=== PATIENT | female | born 1960 | race Caucasian/White ===

== ENCOUNTER 2017-05-27 07:27 | Inpatient (IN) ==
[2017-05-27] MEDS ORDERED: LABETALOL 20 MG/4 ML SYRINGE IV STA (07:42)
[2017-05-27] MEDS ORDERED: ASPIRIN 300 MG SUPP RECTAL STA (07:42)
[2017-05-27] MEDS ORDERED: ONDANSETRON 4 MG/2 ML VIAL IV PRN ×2 (07:42→10:05)
[2017-05-27] MEDS ORDERED: LABETALOL 20 MG/4 ML SYRINGE IV ONE (07:48)
[2017-05-27] MEDS ORDERED: ASPIRIN 300 MG SUPP RECTAL ONE (07:49)
[2017-05-27 08:12] LABS: Basophils # 0.1 10*3/uL (0.0-0.2); Basophils % 0.7 % (0.0-0.8); Eosinophils # 0.3 10*3/uL (0.0-0.87); Eosinophils % 3.1 % (0.00-10.9); Hematocrit 40.8 VOL% (35.7-47.0); Hemoglobin 13.7 GM/DL (12.0-16.0); Immature Granulocytes % 0.3 %; Immature Granulocytes Absolute 0.03 #; Lymphocytes # 3.2 10*3/uL (1.4-4.0); Lymphocytes % 31.6 % (21.3-54.2); Mean Corpuscular HGB Conc 33.6 GM/DL (32-36); Mean Corpuscular Hemoglobin 29 PG (27-34); Mean Corpuscular Volume 84.8 FL (87-102); Mean Platelet Volume 9.1 FL (9.6-12.0); Monocytes % 9.6 % (1.7-12.7); Neutrophils # 5.6 10*3/uL (1.4-7.4); Neutrophils % 54.7 % (38.7-73.9); Platelet Count 409 T/CUMM (130-400); Red Blood Count 4.81 MC/CUMM (3.8-5.5); Red Cell Distribution Width 13.3 % (9.3-17.3); White Blood Count 10.2 T/CUMM (4-12)
[2017-05-27 08:20] LABS: INR 0.9; PT Patient Result 9.6 SECS; Partial Thromboplastin Time 25.6 SECS (0-40)
[2017-05-27 08:52] LABS: Alanine Aminotransferase 18 U/L (13-56); Albumin 2.7 G/DL (3.4-5.0); Alkaline Phosphatase 86 U/L (45-117); Aspartate Amino Transferase 26 U/L (0-37); Bilirubin,Total < 0.39 MG/DL (0.2-1.0); Blood Urea Nitrogen 25 MG/DL (7-18); Calcium 9.1 MG/DL (8.5-10.1); Glucose 139 MG/DL (74-106); Osmolality,Calculated 280.7 MOS/KG (273-304); Potassium 3.4 MMOL/L (3.5-5.1); Sodium 138 MMOL/L (136-145); Total Protein 6.3 G/DL (6.4-8.3)
[2017-05-27] MEDS ORDERED: ENOXAPARIN 80 MG/0.8 ML SYRINGE SUBCUT STA (08:58)
[2017-05-27] MEDS ORDERED: ENOXAPARIN 80 MG/0.8 ML SYRINGE SUBCUT ONE (09:03)
[2017-05-27 09:36] LABS: Apearance,Urine CLEAR (Clear); Bacteria,Urine Occasional /HPF (Few); Bilirubin,Urine Negative (Negative); Blood, Urine Small mg/dL (Negative); Glucose,Urine (UA) 150 mg/dL (Negative); Ketones,Urine Negative (Negative); Mucus,Urine Occasional /LPF (Occasional); Nitrite,Urine Negative (Negative); Protein,Urine >=500 MG/DL; RBC,Urine 2 /HPF (0-4); Squamous Epithelial Cell,Urine Occasional /HPF (0-10); Urine Color Straw (Yellow); Urine Specific Gravity 1.005 (1.001-1.035); Urine Urobilinogen < 2.0 EU/DL (0.2-1.0); WBC,Urine 1 /HPF (0-6)
[2017-05-27 10:03] LABS: Barbiturates Screen,Urine Negative (Negative); Benzodiazepines Screen,Urine Negative (Negative); Cannabinoid Screen,Urine Negative (Negative); Opiate Screen,Urine Negative (Negative); Phencyclidine Screen,Urine Negative (Negative)
[2017-05-27] MEDS ORDERED: guaiFENesin/DM ER 600-30 MG TABLET PO PRN (10:05)
[2017-05-27] MEDS ORDERED: diphenhydrAMINE CAP 25 MG CAPSULE PO PRN (10:05)
[2017-05-27] MEDS ORDERED: MORPHINE 4 MG/1 ML VIAL IV PRN (10:05)
[2017-05-27] MEDS ORDERED: DOCUSATE SODIUM 100 MG CAPSULE PO PRN (10:05)
[2017-05-27] MEDS ORDERED: GLUCAGON 1 MG VIAL IM PRN (10:05)
[2017-05-27] MEDS ORDERED: ACETAMINOPHEN 325 MG TABLET PO PRN (10:05)
[2017-05-27] MEDS ORDERED: DEXTROSE 50% 25 GM/50 ML VIAL IV PRN (10:05)
[2017-05-27] MEDS ORDERED: LABETALOL 20 MG/4 ML SYRINGE IV PRN (10:13)
[2017-05-27] MEDS ORDERED: VALSARTAN 160 MG TABLET PO SCH (11:25)
[2017-05-27] MEDS ORDERED: NEBIVOLOL 10 MG TABLET PO SCH ×2 (11:25→15:49)
[2017-05-27] MEDS ORDERED: NITROGLYCERIN SL 0.4 MG TABLET SL PRN (11:25)
[2017-05-27 11:38] LABS: CKMB % 2.2 %
[2017-05-27 11:39] LABS: Troponin I Only 0.897 NG/ML (0.00-0.045)
[2017-05-27] MEDS ORDERED: INSULIN GLARGINE 100 UNIT/ML SUBCUT SCH ×2 (12:00→21:00)
[2017-05-27] MEDS: ASPIRIN EC 81 MG TABLET PO SCH (12:49)
[2017-05-27] MEDS: VALSARTAN 160 MG TABLET PO SCH ×2 (12:58→20:12)
[2017-05-27] MEDS: PANTOPRAZOLE 40 MG TABLET PO SCH (12:59)
[2017-05-27] MEDS: ESTRADIOL 1 MG TABLET PO SCH (12:59)
[2017-05-27] MEDS: PRAVASTATIN 40 MG TABLET PO SCH (12:59)
[2017-05-27] MEDS: FUROSEMIDE 40 MG/4 ML VIAL IV SCH ×2 (14:50→20:12)
[2017-05-27] MEDS: hydrALAZINE 20 MG/1 ML VIAL IV PRN (16:06)
[2017-05-27] MEDS: INSULIN LISPRO 100 UNIT/ML SUBCUT SCH (16:42)
[2017-05-27] MEDS: GLIMEPIRIDE 4 MG TABLET PO SCH (17:08)
[2017-05-27] MEDS: NITROGLYCERIN 2% OINT 1 INCH/GM PACK TOP SCH (17:08)
[2017-05-27] MEDS: POTASSIUM CHLORIDE 20 MEQ TABLET PO PRN ×3 (17:09→20:12)
[2017-05-27] MEDS: APIXABAN 2.5 MG TABLET PO SCH (20:12)
[2017-05-27] MEDS: hydrALAZINE 25 MG TABLET PO SCH (20:12)
[2017-05-27 20:18] LABS: Troponin I Only 0.582 NG/ML (0.00-0.045)
[2017-05-28] MEDS: hydrALAZINE 20 MG/1 ML VIAL IV PRN (00:09)
[2017-05-28 00:20] LABS: Troponin I Only 0.534 NG/ML (0.00-0.045)
[2017-05-28] MEDS: NITROGLYCERIN 2% OINT 1 INCH/GM PACK TOP SCH ×3 (01:47→11:05)
[2017-05-28 06:20] LABS: Calcium 8.4 MG/DL (8.5-10.1); Potassium 3.5 MMOL/L (3.5-5.1)
[2017-05-28 06:52] LABS: Calcium 8.5 MG/DL (8.5-10.1); Osmolality,Calculated 280.3 MOS/KG (273-304); Potassium 3.4 MMOL/L (3.5-5.1); Risk Ratio 4.5; Thyroid Stimulating Hormone 2.49 uIU/ml (0.358-3.74); VLDL CHOLESTEROL 47.6 MG/DL
[2017-05-28 08:09] LABS: Basophils # 0.1 10*3/uL (0.0-0.2); Basophils % 0.6 % (0.0-0.8); Eosinophils # 0.1 10*3/uL (0.0-0.87); Eosinophils % 0.6 % (0.00-10.9); Hematocrit 38.5 VOL% (35.7-47.0); Hemoglobin 13.1 GM/DL (12.0-16.0); Immature Granulocytes % 0.3 %; Immature Granulocytes Absolute 0.03 #; Lymphocytes # 1.6 10*3/uL (1.4-4.0); Lymphocytes % 16.8 % (21.3-54.2); Mean Corpuscular Hemoglobin 29 PG (27-34); Mean Corpuscular Volume 84.8 FL (87-102); Mean Platelet Volume 9.1 FL (9.6-12.0); Monocytes % 10.6 % (1.7-12.7); Neutrophils # 6.7 10*3/uL (1.4-7.4); Neutrophils % 71.1 % (38.7-73.9); Platelet Count 364 T/CUMM (130-400); Red Blood Count 4.54 MC/CUMM (3.8-5.5); Red Cell Distribution Width 13.6 % (9.3-17.3); White Blood Count 9.4 T/CUMM (4-12)
[2017-05-28] MEDS: GLIMEPIRIDE 4 MG TABLET PO SCH ×2 (09:39→17:27)
[2017-05-28] MEDS: INSULIN LISPRO 100 UNIT/ML SUBCUT SCH ×2 (09:39→17:27)
[2017-05-28] MEDS: PRAVASTATIN 40 MG TABLET PO SCH (10:12)
[2017-05-28] MEDS: NEBIVOLOL 10 MG TABLET PO SCH (10:12)
[2017-05-28] MEDS: ESTRADIOL 1 MG TABLET PO SCH (10:12)
[2017-05-28] MEDS: VALSARTAN 160 MG TABLET PO SCH ×2 (10:12→21:57)
[2017-05-28] MEDS: APIXABAN 2.5 MG TABLET PO SCH ×2 (10:12→21:59)
[2017-05-28] MEDS: hydrALAZINE 25 MG TABLET PO SCH (10:13)
[2017-05-28] MEDS: PANTOPRAZOLE 40 MG TABLET PO SCH (10:13)
[2017-05-28] MEDS: ASPIRIN EC 81 MG TABLET PO SCH (10:13)
[2017-05-28] MEDS: FUROSEMIDE 40 MG/4 ML VIAL IV SCH ×3 (10:13→21:52)
[2017-05-28] MEDS ORDERED: POTASSIUM CHLORIDE 20 MEQ PACK PO ONE (10:30)
[2017-05-28] MEDS ORDERED: NITROGLYCERIN SL 0.4 MG TABLET SL PRN (11:06)
[2017-05-28] MEDS ORDERED: PRAVASTATIN 40 MG TABLET PO SCH (17:00)
[2017-05-28] MEDS ORDERED: ENOXAPARIN 40 MG/0.4 ML SYRINGE SUBCUT SCH (21:00)
[2017-05-28] MEDS: INSULIN GLARGINE 100 UNIT/ML SUBCUT SCH (21:59)
[2017-05-28] MEDS: ROSUVASTATIN 20 MG TABLET PO SCH (21:59)
[2017-05-28] MEDS: ZALEPLON 5 MG CAPSULE PO PRN (22:20)
[2017-05-28] MEDS ORDERED: SODIUM CHLORIDE 0.9% 1,000 ML IV SCH ×2 (23:45)
[2017-05-29 00:25] LABS: Basophils # 0.1 10*3/uL (0.0-0.2); Basophils % 0.5 % (0.0-0.8); Eosinophils # 0.3 10*3/uL (0.0-0.87); Hematocrit 39.1 VOL% (35.7-47.0); Hemoglobin 12.8 GM/DL (12.0-16.0); Immature Granulocytes % 0.4 %; Immature Granulocytes Absolute 0.05 #; Lymphocytes % 16.1 % (21.3-54.2); Mean Corpuscular HGB Conc 32.7 GM/DL (32-36); Mean Corpuscular Hemoglobin 28 PG (27-34); Mean Corpuscular Volume 85.4 FL (87-102); Mean Platelet Volume 9.1 FL (9.6-12.0); Monocytes # 1.1 10*3/uL (0.11-0.8); Monocytes % 8.5 % (1.7-12.7); Neutrophils # 9.2 10*3/uL (1.4-7.4); Neutrophils % 72.5 % (38.7-73.9); Platelet Count 382 T/CUMM (130-400); Red Blood Count 4.58 MC/CUMM (3.8-5.5); White Blood Count 12.6 T/CUMM (4-12)
[2017-05-29 00:38] LABS: PT Patient Result 10.2 SECS
[2017-05-29 00:51] LABS: Albumin 2.3 G/DL (3.4-5.0); Bilirubin,Total 0.4 MG/DL (0.2-1.0); Calcium 8.2 MG/DL (8.5-10.1); Osmolality,Calculated 281.7 MOS/KG (273-304); Potassium 3.5 MMOL/L (3.5-5.1); Total Protein 5.8 G/DL (6.4-8.3)
[2017-05-29 06:00] LABS: Basophils # 0.1 10*3/uL (0.0-0.2); Basophils % 0.5 % (0.0-0.8); Eosinophils # 0.2 10*3/uL (0.0-0.87); Eosinophils % 1.8 % (0.00-10.9); Hematocrit 37.2 VOL% (35.7-47.0); Hemoglobin 11.9 GM/DL (12.0-16.0); Immature Granulocytes % 0.2 %; Immature Granulocytes Absolute 0.02 #; Mean Corpuscular Hemoglobin 28 PG (27-34); Mean Corpuscular Volume 87.9 FL (87-102); Mean Platelet Volume 9.2 FL (9.6-12.0); Monocytes # 1.1 10*3/uL (0.11-0.8); Monocytes % 10.2 % (1.7-12.7); Neutrophils % 68.3 % (38.7-73.9); Platelet Count 366 T/CUMM (130-400); Red Blood Count 4.23 MC/CUMM (3.8-5.5); Red Cell Distribution Width 14.1 % (9.3-17.3); White Blood Count 10.3 T/CUMM (4-12)
[2017-05-29] MEDS: VALSARTAN 160 MG TABLET PO SCH ×2 (09:54→21:29)
[2017-05-29] MEDS: PANTOPRAZOLE 40 MG TABLET PO SCH (09:54)
[2017-05-29] MEDS: APIXABAN 2.5 MG TABLET PO SCH (09:54)
[2017-05-29] MEDS: NEBIVOLOL 10 MG TABLET PO SCH (09:54)
[2017-05-29] MEDS: INSULIN LISPRO 100 UNIT/ML SUBCUT SCH ×2 (09:56→17:24)
[2017-05-29] MEDS: ASPIRIN EC 81 MG TABLET PO SCH (09:56)
[2017-05-29] MEDS: FUROSEMIDE 40 MG/4 ML VIAL IV SCH ×3 (09:56→21:30)
[2017-05-29] MEDS: GLIMEPIRIDE 4 MG TABLET PO SCH ×2 (09:56→17:24)
[2017-05-29] MEDS: HEPARIN DRIP 25,000 UNITS/500 ML PREMIX IV SCH (12:00)
[2017-05-29] MEDS: ROSUVASTATIN 20 MG TABLET PO SCH (21:29)
[2017-05-29] MEDS: INSULIN GLARGINE 100 UNIT/ML SUBCUT SCH (21:30)
[2017-05-30] MEDS ORDERED: clonazePAM 0.5 MG TABLET PO ONE (00:03)
[2017-05-30 00:41] LABS: Basophils # 0.1 10*3/uL (0.0-0.2); Basophils % 0.5 % (0.0-0.8); Eosinophils # 0.2 10*3/uL (0.0-0.87); Eosinophils % 2.5 % (0.00-10.9); Hematocrit 36.2 VOL% (35.7-47.0); Hemoglobin 11.8 GM/DL (12.0-16.0); Immature Granulocytes % 0.3 %; Immature Granulocytes Absolute 0.03 #; Lymphocytes # 2.2 10*3/uL (1.4-4.0); Lymphocytes % 22.6 % (21.3-54.2); Mean Corpuscular HGB Conc 32.6 GM/DL (32-36); Mean Corpuscular Hemoglobin 28 PG (27-34); Mean Corpuscular Volume 86.8 FL (87-102); Mean Platelet Volume 9.8 FL (9.6-12.0); Monocytes % 10.5 % (1.7-12.7); Neutrophils # 6.2 10*3/uL (1.4-7.4); Neutrophils % 63.6 % (38.7-73.9); Platelet Count 365 T/CUMM (130-400); Red Blood Count 4.17 MC/CUMM (3.8-5.5); Red Cell Distribution Width 14.2 % (9.3-17.3); White Blood Count 9.7 T/CUMM (4-12)
[2017-05-30 01:06] LABS: Calcium 7.9 MG/DL (8.5-10.1); Osmolality,Calculated 280.8 MOS/KG (273-304); Potassium 3.5 MMOL/L (3.5-5.1)
[2017-05-30] MEDS: HEPARIN 5,000 UNIT/1 ML VIAL IV PRN ×3 (01:45→16:02)
[2017-05-30] MEDS: HEPARIN DRIP 25,000 UNITS/500 ML PREMIX IV SCH (07:52)
[2017-05-30] MEDS ORDERED: fentaNYL 100 MCG/2 ML VIAL ONE (09:40)
[2017-05-30] MEDS: INSULIN LISPRO 100 UNIT/ML SUBCUT SCH ×2 (09:49→16:05)
[2017-05-30] MEDS: GLIMEPIRIDE 4 MG TABLET PO SCH ×2 (09:50→16:05)
[2017-05-30] MEDS ORDERED: PROPOFOL 200 MG/20 ML VIAL IV ONE (10:35)
[2017-05-30] MEDS ORDERED: ETOMIDATE 40 MG/20 ML VIAL IV ONE (10:35)
[2017-05-30] MEDS: NEBIVOLOL 10 MG TABLET PO SCH (11:04)
[2017-05-30] MEDS: VALSARTAN 160 MG TABLET PO SCH ×2 (11:04→22:04)
[2017-05-30] MEDS: FUROSEMIDE 40 MG/4 ML VIAL IV SCH (11:05)
[2017-05-30] MEDS: ASPIRIN EC 81 MG TABLET PO SCH (11:05)
[2017-05-30] MEDS: PANTOPRAZOLE 40 MG TABLET PO SCH (11:05)
[2017-05-30] MEDS: WARFARIN 5 MG TABLET PO SCH (17:24)
[2017-05-30] MEDS: INSULIN GLARGINE 100 UNIT/ML SUBCUT SCH (22:04)
[2017-05-30] MEDS: ZALEPLON 5 MG CAPSULE PO PRN (22:04)
[2017-05-30] MEDS: ROSUVASTATIN 20 MG TABLET PO SCH (22:04)
[2017-05-30 23:44] LABS: Apearance,Urine Slightly Hazy (Clear); Bacteria,Urine Many /HPF (Few); Bilirubin,Urine Negative (Negative); Blood, Urine Negative (Negative); Glucose,Urine (UA) >=500 mg/dL (Negative); Ketones,Urine Negative (Negative); Mucus,Urine Occasional /LPF (Occasional); Nitrite,Urine Negative (Negative); Protein,Urine >=500 MG/DL; Squamous Epithelial Cell,Urine Occasional /HPF (0-10); Urine Color Yellow (Yellow); Urine Specific Gravity 1.008 (1.001-1.035); Urine Urobilinogen < 2.0 EU/DL (0.2-1.0); WBC,Urine 14 /HPF (0-6)
[2017-05-31] MEDS: HEPARIN DRIP 25,000 UNITS/500 ML PREMIX IV SCH ×3 (00:59→21:41)
[2017-05-31] MEDS: VALSARTAN 160 MG TABLET PO SCH ×2 (09:50→20:35)
[2017-05-31] MEDS: NEBIVOLOL 10 MG TABLET PO SCH (09:50)
[2017-05-31] MEDS: INSULIN LISPRO 100 UNIT/ML SUBCUT SCH ×2 (09:51→17:22)
[2017-05-31] MEDS: GLIMEPIRIDE 4 MG TABLET PO SCH ×2 (09:51→17:22)
[2017-05-31] MEDS: PANTOPRAZOLE 40 MG TABLET PO SCH (09:51)
[2017-05-31] MEDS: ASPIRIN EC 81 MG TABLET PO SCH (09:51)
[2017-05-31] MEDS ORDERED: LEVOFLOXACIN 250 MG TABLET PO SCH (10:30)
[2017-05-31] MEDS: FUROSEMIDE 40 MG/4 ML VIAL IV SCH ×4 (11:12→20:36)
[2017-05-31] MEDS: LINACLOTIDE 145 MCG CAPSULE PO SCH (12:29)
[2017-05-31 13:58] LABS: INR 0.9; PT Patient Result 9.9 SECS
[2017-05-31] MEDS ORDERED: busPIRone 5 MG TABLET PO SCH (15:00)
[2017-05-31] MEDS ORDERED: CLORAZEPATE 3.75 MG TABLET PO PRN (16:27)
[2017-05-31] MEDS ORDERED: NEBIVOLOL 10 MG TABLET PO ONE (16:51)
[2017-05-31] MEDS: WARFARIN 5 MG TABLET PO SCH (17:22)
[2017-05-31] MEDS: busPIRone 10 MG TABLET PO SCH (20:35)
[2017-05-31] MEDS: ROSUVASTATIN 20 MG TABLET PO SCH (20:35)
[2017-05-31] MEDS: CIPROFLOXACIN 250 MG TABLET PO SCH (20:35)
[2017-05-31] MEDS: INSULIN GLARGINE 100 UNIT/ML SUBCUT SCH (20:38)
[2017-05-31] MEDS ORDERED: APIXABAN 2.5 MG TABLET PO SCH (21:00)
[2017-05-31 21:08] LABS: Barbiturates Screen,Urine Negative (Negative); Benzodiazepines Screen,Urine Negative (Negative); Cannabinoid Screen,Urine Negative (Negative); Opiate Screen,Urine Negative (Negative); Phencyclidine Screen,Urine Negative (Negative)
[2017-05-31] MEDS ORDERED: HEPARIN 5,000 UNIT/1 ML VIAL IV ONE (23:09)
[2017-06-01 05:41] LABS: INR 1.1; PT Patient Result 11.4 SECS
[2017-06-01 05:44] LABS: INR 1.1; PT Patient Result 11.4 SECS
[2017-06-01 05:57] LABS: Calcium 7.7 MG/DL (8.5-10.1); Osmolality,Calculated 289.1 MOS/KG (273-304); Potassium 3.6 MMOL/L (3.5-5.1)
[2017-06-01] MEDS ORDERED: HEPARIN 5,000 UNIT/1 ML VIAL IV ONE (06:00)
[2017-06-01] MEDS: VALSARTAN 160 MG TABLET PO SCH (11:08)
[2017-06-01] MEDS: NEBIVOLOL 10 MG TABLET PO SCH (11:09)
[2017-06-01] MEDS: busPIRone 10 MG TABLET PO SCH ×3 (11:09→21:43)
[2017-06-01] MEDS: INSULIN LISPRO 100 UNIT/ML SUBCUT SCH ×2 (11:10→16:47)
[2017-06-01] MEDS: PANTOPRAZOLE 40 MG TABLET PO SCH (11:13)
[2017-06-01] MEDS: CIPROFLOXACIN 250 MG TABLET PO SCH ×2 (11:13→21:43)
[2017-06-01] MEDS: GLIMEPIRIDE 4 MG TABLET PO SCH ×2 (11:13→16:46)
[2017-06-01] MEDS: ASPIRIN EC 81 MG TABLET PO SCH (11:14)
[2017-06-01] MEDS: FUROSEMIDE 40 MG/4 ML VIAL IV SCH ×2 (11:15→16:48)
[2017-06-01] MEDS: LINACLOTIDE 145 MCG CAPSULE PO SCH (11:15)
[2017-06-01] MEDS: HEPARIN DRIP 25,000 UNITS/500 ML PREMIX IV SCH (15:23)
[2017-06-01] MEDS: cloNIDine 0.1 MG TABLET PO SCH ×2 (15:24→21:43)
[2017-06-01] MEDS: WARFARIN 5 MG TABLET PO SCH (18:01)
[2017-06-01] MEDS: ROSUVASTATIN 20 MG TABLET PO SCH (21:42)
[2017-06-01] MEDS: ACETYLCYSTEINE 600 MG CAPSULE PO SCH (21:43)
[2017-06-01] MEDS: INSULIN GLARGINE 100 UNIT/ML SUBCUT SCH (21:44)
[2017-06-01 23:10] LABS: Collection Time,Urine 24 HOURS
[2017-06-01 23:11] LABS: Total Protein 24 Hr Ur Result 13143 MG/24HR (0-149.1); Total Volume,Urine 4850 ML (400-2000)
[2017-06-02 05:15] LABS: INR 1.4; PT Patient Result 14.2 SECS; PT Patient Result 14.6 SECS
[2017-06-02 05:27] LABS: Calcium 7.5 MG/DL (8.5-10.1); Osmolality,Calculated 288.7 MOS/KG (273-304); Potassium 3.3 MMOL/L (3.5-5.1)
[2017-06-02] MEDS: HEPARIN DRIP 25,000 UNITS/500 ML PREMIX IV SCH (07:57)
[2017-06-02] MEDS: NEBIVOLOL 10 MG TABLET PO SCH (08:37)
[2017-06-02] MEDS: ACETYLCYSTEINE 600 MG CAPSULE PO SCH ×2 (08:37→21:35)
[2017-06-02] MEDS: LINACLOTIDE 145 MCG CAPSULE PO SCH (08:37)
[2017-06-02] MEDS: busPIRone 10 MG TABLET PO SCH ×3 (08:37→21:35)
[2017-06-02] MEDS: ASPIRIN EC 81 MG TABLET PO SCH (08:38)
[2017-06-02] MEDS: CIPROFLOXACIN 250 MG TABLET PO SCH (08:38)
[2017-06-02] MEDS: cloNIDine 0.1 MG TABLET PO SCH ×3 (08:38→21:35)
[2017-06-02] MEDS: GLIMEPIRIDE 4 MG TABLET PO SCH ×2 (08:38→17:14)
[2017-06-02] MEDS: PANTOPRAZOLE 40 MG TABLET PO SCH (08:38)
[2017-06-02] MEDS: INSULIN LISPRO 100 UNIT/ML SUBCUT SCH ×2 (08:38→17:13)
[2017-06-02] MEDS: cefTRIAXone 1,000 MG in SYRINGE 1 EACH IV SCH (13:11)
[2017-06-02] MEDS: WARFARIN 5 MG TABLET PO SCH (17:14)
[2017-06-02] MEDS: ROSUVASTATIN 20 MG TABLET PO SCH (21:35)
[2017-06-02] MEDS: INSULIN GLARGINE 100 UNIT/ML SUBCUT SCH (21:48)
[2017-06-03] MEDS: HEPARIN DRIP 25,000 UNITS/500 ML PREMIX IV SCH ×2 (00:34→17:36)
[2017-06-03 01:51] LABS: Calcium 7.5 MG/DL (8.5-10.1); Osmolality,Calculated 290.5 MOS/KG (273-304); Potassium 3.3 MMOL/L (3.5-5.1)
[2017-06-03 01:59] LABS: Alanine Aminotransferase 15 U/L (13-56); Albumin 2.1 G/DL (3.4-5.0); Alkaline Phosphatase 73 U/L (45-117); Aspartate Amino Transferase 18 U/L (0-37); Bilirubin,Direct < 0.050 MG/DL (0.0-0.20); Bilirubin,Indirect 0.3 MG/DL (0.0-1.0); Bilirubin,Total < 0.39 MG/DL (0.2-1.0); Total Protein 5.3 G/DL (6.4-8.3)
[2017-06-03 04:45] LABS: 24 Hr Protein (Bench) 13143 MG/24HR (0-149.1); Albumin (UPE) 8700.7 MG/24H; Albumin (UPE) Rel % 66.2 %; Alpha 1 (UPE) 1143.4 MG/24H; Alpha 1 (UPE) Rel % 8.7 %; Alpha 2 (UPE) Rel % 6.3 %; Beta (UPE) 1603.5 MG/24H; Beta (UPE) Rel % 12.2 %; Gamma (UPE) 867.4 MG/24H; Gamma (UPE) Rel % 6.6 %
[2017-06-03 04:46] LABS: Collection Time,Urine 24 HOURS; Total Protein 24 Hr Ur Result 13143 MG/24HR (0-149.1); Total Volume,Urine 4850 ML (400-2000)
[2017-06-03 05:50] LABS: INR 1.7; PT Patient Result 17.4 SECS
[2017-06-03 05:51] LABS: INR 1.7; PT Patient Result 17.6 SECS
[2017-06-03 05:53] LABS: Basophils # 0.1 10*3/uL (0.0-0.2); Basophils % 0.7 % (0.0-0.8); Eosinophils # 0.4 10*3/uL (0.0-0.87); Hematocrit 30.8 VOL% (35.7-47.0); Hemoglobin 10.3 GM/DL (12.0-16.0); Immature Granulocytes % 0.4 %; Immature Granulocytes Absolute 0.03 #; Lymphocytes # 1.6 10*3/uL (1.4-4.0); Lymphocytes % 22.2 % (21.3-54.2); Mean Corpuscular HGB Conc 33.4 GM/DL (32-36); Mean Corpuscular Hemoglobin 29 PG (27-34); Mean Corpuscular Volume 85.6 FL (87-102); Mean Platelet Volume 9.7 FL (9.6-12.0); Monocytes # 0.8 10*3/uL (0.11-0.8); Monocytes % 10.7 % (1.7-12.7); Neutrophils # 4.4 10*3/uL (1.4-7.4); Platelet Count 343 T/CUMM (130-400); Red Cell Distribution Width 13.7 % (9.3-17.3); White Blood Count 7.2 T/CUMM (4-12)
[2017-06-03 06:19] LABS: HIV Antigen/Antibody Result Nonreactive (Nonreactive)
[2017-06-03 07:01] LABS: Albumin (SPE) 1.9 G/DL (3.2-5.3); Albumin (SPE) Rel % 35.5 %; Alpha 1 (SPE) 0.4 G/DL (0.1-0.4); Alpha 1 (SPE) Rel % 7.5 %; Alpha 2 (SPE) 1.4 G/DL (0.4-1.0); Alpha 2 (SPE) Rel % 26.8 %; Beta (SPE) Rel % 19.3 %; Gamma (SPE) 0.6 G/DL (0.7-1.7); Gamma (SPE) Rel % 10.9 %; Total Protein (Chem) 5.3 G/DL (6.4-8.3)
[2017-06-03] MEDS: NEBIVOLOL 10 MG TABLET PO SCH (10:06)
[2017-06-03] MEDS: ACETYLCYSTEINE 600 MG CAPSULE PO SCH ×2 (10:06→21:36)
[2017-06-03] MEDS: busPIRone 10 MG TABLET PO SCH ×3 (10:07→21:36)
[2017-06-03] MEDS: GLIMEPIRIDE 4 MG TABLET PO SCH ×2 (10:07→17:34)
[2017-06-03] MEDS: cloNIDine 0.1 MG TABLET PO SCH ×3 (10:08→21:36)
[2017-06-03] MEDS: PANTOPRAZOLE 40 MG TABLET PO SCH (10:09)
[2017-06-03] MEDS: INSULIN LISPRO 100 UNIT/ML SUBCUT SCH ×2 (10:09→17:33)
[2017-06-03] MEDS: ASPIRIN EC 81 MG TABLET PO SCH (10:09)
[2017-06-03] MEDS: LINACLOTIDE 145 MCG CAPSULE PO SCH (10:10)
[2017-06-03] MEDS: cefTRIAXone 1,000 MG in SYRINGE 1 EACH IV SCH (10:11)
[2017-06-03] MEDS ORDERED: VALSARTAN 160 MG TABLET PO SCH (11:30)
[2017-06-03 12:20] LABS: DRVVT Screen Ratio 1.1 ratio (0.0 - 1.1); INR 1.1
[2017-06-03 13:36] LABS: Protein S Activity Plasma 135 % (65 - 160)
[2017-06-03] MEDS: VALSARTAN 160 MG TABLET PO SCH (13:54)
[2017-06-03 14:13] LABS: Protein C Activity Plasma 77 % (70 - 150)
[2017-06-03] MEDS: ROSUVASTATIN 20 MG TABLET PO SCH (21:36)
[2017-06-03] MEDS: INSULIN GLARGINE 100 UNIT/ML SUBCUT SCH (21:44)
[2017-06-04 06:20] LABS: Basophils % 0.6 % (0.0-0.8); Eosinophils # 0.3 10*3/uL (0.0-0.87); Eosinophils % 4.8 % (0.00-10.9); Hematocrit 30.2 VOL% (35.7-47.0); Hemoglobin 9.9 GM/DL (12.0-16.0); Immature Granulocytes % 0.3 %; Immature Granulocytes Absolute 0.02 #; Lymphocytes # 1.6 10*3/uL (1.4-4.0); Lymphocytes % 23.5 % (21.3-54.2); Mean Corpuscular HGB Conc 32.8 GM/DL (32-36); Mean Corpuscular Hemoglobin 29 PG (27-34); Mean Corpuscular Volume 87.3 FL (87-102); Mean Platelet Volume 10.1 FL (9.6-12.0); Monocytes # 0.8 10*3/uL (0.11-0.8); Monocytes % 11.9 % (1.7-12.7); Neutrophils # 4.1 10*3/uL (1.4-7.4); Neutrophils % 58.9 % (38.7-73.9); Platelet Count 327 T/CUMM (130-400); Red Blood Count 3.46 MC/CUMM (3.8-5.5); Red Cell Distribution Width 13.7 % (9.3-17.3); White Blood Count 6.9 T/CUMM (4-12)
[2017-06-04 06:25] LABS: INR 1.5; PT Patient Result 16.1 SECS
[2017-06-04 06:27] LABS: INR 1.5; PT Patient Result 15.7 SECS
[2017-06-04 06:47] LABS: Calcium 7.9 MG/DL (8.5-10.1); Osmolality,Calculated 288.5 MOS/KG (273-304); Potassium 3.3 MMOL/L (3.5-5.1)
[2017-06-04] MEDS: INSULIN LISPRO 100 UNIT/ML SUBCUT SCH ×2 (08:53→16:08)
[2017-06-04] MEDS: GLIMEPIRIDE 4 MG TABLET PO SCH ×2 (08:53→16:08)
[2017-06-04] MEDS: LINACLOTIDE 145 MCG CAPSULE PO SCH (08:53)
[2017-06-04] MEDS ORDERED: VALSARTAN 160 MG TABLET PO SCH (09:00)
[2017-06-04] MEDS: cefTRIAXone 1,000 MG in SYRINGE 1 EACH IV SCH (09:22)
[2017-06-04] MEDS ORDERED: DIAZEPAM 5 MG TABLET PO ONE (10:00)
[2017-06-04] MEDS: ASPIRIN EC 81 MG TABLET PO SCH (10:01)
[2017-06-04] MEDS: NEBIVOLOL 10 MG TABLET PO SCH ×2 (10:01→10:11)
[2017-06-04] MEDS: busPIRone 10 MG TABLET PO SCH ×3 (10:01→22:07)
[2017-06-04] MEDS: PANTOPRAZOLE 40 MG TABLET PO SCH (10:02)
[2017-06-04] MEDS: cloNIDine 0.1 MG TABLET PO SCH ×2 (10:02→10:12)
[2017-06-04] MEDS: VALSARTAN 160 MG TABLET PO SCH ×2 (10:02→10:12)
[2017-06-04] MEDS: POTASSIUM CHLORIDE 20 MEQ TABLET PO PRN ×3 (13:04→18:11)
[2017-06-04 21:51] LABS: Factor V Leiden (R506Q) Mutati Negative (Negative)
[2017-06-04] MEDS: ROSUVASTATIN 20 MG TABLET PO SCH (22:06)
[2017-06-04] MEDS: INSULIN GLARGINE 100 UNIT/ML SUBCUT SCH (22:10)
[2017-06-04] MEDS: HEPARIN DRIP 25,000 UNITS/500 ML PREMIX IV SCH (23:25)
[2017-06-05 05:49] LABS: Basophils # 0.1 10*3/uL (0.0-0.2); Basophils % 0.7 % (0.0-0.8); Eosinophils # 0.3 10*3/uL (0.0-0.87); Eosinophils % 4.1 % (0.00-10.9); Hematocrit 30.9 VOL% (35.7-47.0); Immature Granulocytes % 0.3 %; Immature Granulocytes Absolute 0.02 #; Lymphocytes # 1.5 10*3/uL (1.4-4.0); Lymphocytes % 20.9 % (21.3-54.2); Mean Corpuscular HGB Conc 32.4 GM/DL (32-36); Mean Corpuscular Hemoglobin 28 PG (27-34); Mean Corpuscular Volume 86.8 FL (87-102); Mean Platelet Volume 9.7 FL (9.6-12.0); Monocytes # 0.8 10*3/uL (0.11-0.8); Monocytes % 11.3 % (1.7-12.7); Neutrophils # 4.6 10*3/uL (1.4-7.4); Neutrophils % 62.7 % (38.7-73.9); Platelet Count 359 T/CUMM (130-400); Red Blood Count 3.56 MC/CUMM (3.8-5.5); Red Cell Distribution Width 13.8 % (9.3-17.3); White Blood Count 7.3 T/CUMM (4-12)
[2017-06-05 05:56] LABS: INR 1.1; PT Patient Result 11.7 SECS
[2017-06-05 06:24] LABS: Calcium 8.5 MG/DL (8.5-10.1); Osmolality,Calculated 289.5 MOS/KG (273-304); Potassium 3.8 MMOL/L (3.5-5.1)
[2017-06-05] MEDS: GLIMEPIRIDE 4 MG TABLET PO SCH ×2 (07:44→16:27)
[2017-06-05] MEDS: LINACLOTIDE 145 MCG CAPSULE PO SCH (07:44)
[2017-06-05] MEDS: NEBIVOLOL 10 MG TABLET PO SCH (08:18)
[2017-06-05] MEDS: VALSARTAN 160 MG TABLET PO SCH (08:18)
[2017-06-05] MEDS: PANTOPRAZOLE 40 MG TABLET PO SCH (08:18)
[2017-06-05] MEDS: busPIRone 10 MG TABLET PO SCH ×3 (08:18→21:31)
[2017-06-05] MEDS: ASPIRIN EC 81 MG TABLET PO SCH (08:19)
[2017-06-05] MEDS: WARFARIN 10 MG TABLET PO SCH (09:08)
[2017-06-05] MEDS: metFORMIN 500 MG TABLET PO SCH ×2 (09:08→16:27)
[2017-06-05] MEDS: INSULIN LISPRO 100 UNIT/ML SUBCUT SCH ×2 (09:09→16:27)
[2017-06-05] MEDS: HEPARIN DRIP 25,000 UNITS/500 ML PREMIX IV SCH (14:55)
[2017-06-05] MEDS: HEPARIN 5,000 UNIT/1 ML VIAL IV PRN (14:57)
[2017-06-05 15:25] LABS: Glomerular Basement Membrane A < 0.2 U; Myeloperoxidase Antibody < 0.2 U
[2017-06-05] MEDS: hydroCHLOROthiazide 25 MG TABLET PO SCH (16:27)
[2017-06-05] MEDS: INSULIN GLARGINE 100 UNIT/ML SUBCUT SCH (21:31)
[2017-06-05] MEDS: ROSUVASTATIN 20 MG TABLET PO SCH (21:31)
[2017-06-06] MEDS: HEPARIN DRIP 25,000 UNITS/500 ML PREMIX IV SCH ×2 (04:43→20:38)
[2017-06-06 07:23] LABS: Basophils % 0.6 % (0.0-0.8); Eosinophils # 0.3 10*3/uL (0.0-0.87); Eosinophils % 4.5 % (0.00-10.9); Hematocrit 30.6 VOL% (35.7-47.0); Hemoglobin 9.9 GM/DL (12.0-16.0); Immature Granulocytes % 0.2 %; Immature Granulocytes Absolute 0.01 #; Lymphocytes # 1.7 10*3/uL (1.4-4.0); Lymphocytes % 27.3 % (21.3-54.2); Mean Corpuscular HGB Conc 32.4 GM/DL (32-36); Mean Corpuscular Hemoglobin 28 PG (27-34); Mean Corpuscular Volume 87.7 FL (87-102); Mean Platelet Volume 9.8 FL (9.6-12.0); Monocytes # 0.7 10*3/uL (0.11-0.8); Monocytes % 11.5 % (1.7-12.7); Neutrophils # 3.4 10*3/uL (1.4-7.4); Neutrophils % 55.9 % (38.7-73.9); Platelet Count 338 T/CUMM (130-400); Red Blood Count 3.49 MC/CUMM (3.8-5.5); White Blood Count 6.2 T/CUMM (4-12)
[2017-06-06 07:31] LABS: INR 1.3
[2017-06-06 07:50] LABS: Calcium 8.1 MG/DL (8.5-10.1); Osmolality,Calculated 281.4 MOS/KG (273-304); Potassium 3.5 MMOL/L (3.5-5.1)
[2017-06-06] MEDS ORDERED: VALSARTAN 160 MG TABLET PO SCH (09:09)
[2017-06-06] MEDS: LINACLOTIDE 145 MCG CAPSULE PO SCH (10:12)
[2017-06-06] MEDS: PANTOPRAZOLE 40 MG TABLET PO SCH (10:12)
[2017-06-06] MEDS: hydroCHLOROthiazide 25 MG TABLET PO SCH (10:12)
[2017-06-06] MEDS: busPIRone 10 MG TABLET PO SCH ×3 (10:12→20:34)
[2017-06-06] MEDS: NEBIVOLOL 10 MG TABLET PO SCH (10:12)
[2017-06-06] MEDS: ASPIRIN EC 81 MG TABLET PO SCH (10:13)
[2017-06-06] MEDS: metFORMIN 500 MG TABLET PO SCH ×2 (10:13→17:45)
[2017-06-06] MEDS: INSULIN LISPRO 100 UNIT/ML SUBCUT SCH ×2 (10:13→17:45)
[2017-06-06] MEDS: GLIMEPIRIDE 4 MG TABLET PO SCH ×2 (10:13→17:45)
[2017-06-06] MEDS: VALSARTAN 160 MG TABLET PO SCH ×2 (11:48→14:26)
[2017-06-06] MEDS: WARFARIN 10 MG TABLET PO SCH (17:45)
[2017-06-06] MEDS: POTASSIUM CHLORIDE 20 MEQ TABLET PO PRN (20:33)
[2017-06-06] MEDS: ROSUVASTATIN 20 MG TABLET PO SCH (20:33)
[2017-06-06] MEDS: INSULIN GLARGINE 100 UNIT/ML SUBCUT SCH (20:34)
[2017-06-07 04:53] LABS: INR 1.5; PT Patient Result 16.1 SECS
[2017-06-07 04:54] LABS: Basophils # 0.1 10*3/uL (0.0-0.2); Basophils % 0.9 % (0.0-0.8); Eosinophils # 0.2 10*3/uL (0.0-0.87); Eosinophils % 4.3 % (0.00-10.9); Hematocrit 31.1 VOL% (35.7-47.0); Hemoglobin 10.2 GM/DL (12.0-16.0); Immature Granulocytes % 0.4 %; Immature Granulocytes Absolute 0.02 #; Lymphocytes # 1.6 10*3/uL (1.4-4.0); Mean Corpuscular HGB Conc 32.8 GM/DL (32-36); Mean Corpuscular Hemoglobin 28 PG (27-34); Mean Corpuscular Volume 85.4 FL (87-102); Mean Platelet Volume 11.4 FL (9.6-12.0); Monocytes # 0.7 10*3/uL (0.11-0.8); Monocytes % 12.8 % (1.7-12.7); Neutrophils # 2.9 10*3/uL (1.4-7.4); Neutrophils % 52.6 % (38.7-73.9); Platelet Count 261 T/CUMM (130-400); Red Blood Count 3.64 MC/CUMM (3.8-5.5); White Blood Count 5.6 T/CUMM (4-12)
[2017-06-07 05:18] LABS: Calcium 8.5 MG/DL (8.5-10.1); Osmolality,Calculated 281.3 MOS/KG (273-304); Potassium 3.7 MMOL/L (3.5-5.1)
[2017-06-07] MEDS ORDERED: INSULIN GLARGINE 100 UNIT/ML SUBCUT SCH (08:04)
[2017-06-07] MEDS ORDERED: TORSEMIDE 20 MG TABLET PO SCH (09:00)
[2017-06-07] MEDS: NEBIVOLOL 10 MG TABLET PO SCH (09:39)
[2017-06-07] MEDS: LINACLOTIDE 145 MCG CAPSULE PO SCH (09:39)
[2017-06-07] MEDS: VALSARTAN 160 MG TABLET PO SCH (09:39)
[2017-06-07] MEDS: busPIRone 10 MG TABLET PO SCH ×3 (09:40→20:54)
[2017-06-07] MEDS: INSULIN LISPRO 100 UNIT/ML SUBCUT SCH ×2 (09:40→16:29)
[2017-06-07] MEDS: PANTOPRAZOLE 40 MG TABLET PO SCH (09:41)
[2017-06-07] MEDS: metFORMIN 500 MG TABLET PO SCH ×2 (09:41→16:29)
[2017-06-07] MEDS: hydroCHLOROthiazide 25 MG TABLET PO SCH (09:41)
[2017-06-07] MEDS: GLIMEPIRIDE 4 MG TABLET PO SCH ×2 (09:41→16:29)
[2017-06-07] MEDS: ASPIRIN EC 81 MG TABLET PO SCH (09:41)
[2017-06-07] MEDS ORDERED: WARFARIN 5 MG TABLET PO ONE (12:00)
[2017-06-07] MEDS: HEPARIN DRIP 25,000 UNITS/500 ML PREMIX IV SCH ×2 (13:06→16:28)
[2017-06-07] MEDS: WARFARIN 10 MG TABLET PO SCH (18:12)
[2017-06-07] MEDS: POTASSIUM CHLORIDE 20 MEQ TABLET PO PRN (20:54)
[2017-06-07] MEDS: ROSUVASTATIN 20 MG TABLET PO SCH (20:55)
[2017-06-08 03:52] LABS: INR 3.1
[2017-06-08 04:00] LABS: PT Patient Result 31.5 SECS
[2017-06-08 04:05] LABS: Calcium 7.8 MG/DL (8.5-10.1); Osmolality,Calculated 289.4 MOS/KG (273-304); Potassium 3.7 MMOL/L (3.5-5.1)
[2017-06-08] MEDS: HEPARIN DRIP 25,000 UNITS/500 ML PREMIX IV SCH (04:37)
[2017-06-08] MEDS ORDERED: WARFARIN 10 MG TABLET PO SCH (07:36)
[2017-06-08 08:28] VITALS: BP 176/90
== END 2017-06-08 09:54 | disposition home or self-care (01) | DRG 65 ==
LOC: N.EDINP 07:27 → N.ED 07:27 → N.2E 11:23 → SUATTDRO 05-29 15:18 → N.2E 06-07 18:16
PROVIDERS: ADMIT Hospitalist; ATTEND Internal Medicine

== ENCOUNTER 2017-08-19 06:02 | Inpatient (IN) ==
[2017-08-19] MEDS ORDERED: DEXTROSE 50% 25 GM/50 ML VIAL IV ONE ×2 (07:23→07:38)
[2017-08-19] MEDS ORDERED: POTASSIUM CHLORIDE RIDER 10 MEQ in PREMIX 1 EACH IV PRN (07:29)
[2017-08-19] MEDS ORDERED: MAGNESIUM SULF RIDER 2 GM in PREMIX 1 EACH IV PRN (07:29)
[2017-08-19] MEDS ORDERED: ASPIRIN 325 MG TABLET PO ONE (07:29)
[2017-08-19] MEDS ORDERED: DIAZEPAM 5 MG TABLET PO ONE (07:29)
[2017-08-19] MEDS ORDERED: diphenhydrAMINE CAP 25 MG CAPSULE PO ONE (07:29)
[2017-08-19 07:44] LABS: INR 1.1; PT Patient Result 11.5 SECS
[2017-08-19] MEDS ORDERED: DIAZEPAM 5 MG TABLET ONE (07:51)
[2017-08-19] MEDS ORDERED: diphenhydrAMINE CAP 25 MG CAPSULE ONE (07:52)
[2017-08-19] MEDS ORDERED: ASPIRIN 325 MG TABLET ONE (07:52)
[2017-08-19] MEDS: SODIUM CHLORIDE 0.45% 1,000 ML IV SCH ×2 (07:54→17:26)
[2017-08-19] MEDS ORDERED: CLOPIDOGREL 300 MG TABLET ONE ×2 (09:22→09:23)
[2017-08-19] MEDS ORDERED: HEPARIN/NACL 0.9% 2 UNITS/ML 1,000 ML IV ONE (09:22)
[2017-08-19] MEDS ORDERED: LIDOCAINE 1% 20 ML VIAL ONE (09:22)
[2017-08-19] MEDS ORDERED: metOLazone 2.5 MG TABLET PO PRN (09:33)
[2017-08-19] MEDS ORDERED: ACETAMINOPHEN/CODEINE 300-30 MG TABLET PO PRN (09:36)
[2017-08-19] MEDS ORDERED: MORPHINE 4 MG/1 ML VIAL IV PRN (09:36)
[2017-08-19] MEDS ORDERED: ACETAMINOPHEN 325 MG TABLET PO PRN (09:36)
[2017-08-19] MEDS ORDERED: WARFARIN 7.5 MG TABLET PO ONE (09:38)
[2017-08-19] MEDS ORDERED: MIDAZOLAM 2 MG/2 ML VIAL ONE (12:55)
[2017-08-19] MEDS ORDERED: BIVALIRUDIN 250 MG VIAL IV ONE (12:55)
[2017-08-19] MEDS ORDERED: fentaNYL 100 MCG/2 ML VIAL ONE (12:55)
[2017-08-19] MEDS: busPIRone 10 MG TABLET PO SCH ×2 (16:20→21:46)
[2017-08-19] MEDS ORDERED: WARFARIN 10 MG TABLET PO SCH (18:00)
[2017-08-19] MEDS: INSULIN ASPART PROTAMINE/ASPART 70/30 100 UNIT/ML SUBCUT SCH (21:46)
[2017-08-20 04:27] LABS: Basophils % 0.4 % (0.0-0.8); Eosinophils # 0.2 10*3/uL (0.0-0.87); Eosinophils % 2.9 % (0.00-10.9); Hematocrit 30.4 VOL% (35.7-47.0); Hemoglobin 9.7 GM/DL (12.0-16.0); Immature Granulocytes % 0.4 %; Immature Granulocytes Absolute 0.03 #; Lymphocytes # 1.8 10*3/uL (1.4-4.0); Lymphocytes % 23.8 % (21.3-54.2); Mean Corpuscular HGB Conc 31.9 GM/DL (32-36); Mean Corpuscular Hemoglobin 28 PG (27-34); Mean Corpuscular Volume 87.1 FL (87-102); Mean Platelet Volume 9.6 FL (9.6-12.0); Monocytes # 0.9 10*3/uL (0.11-0.8); Monocytes % 12.1 % (1.7-12.7); Neutrophils # 4.4 10*3/uL (1.4-7.4); Neutrophils % 60.4 % (38.7-73.9); Platelet Count 288 T/CUMM (130-400); Red Blood Count 3.49 MC/CUMM (3.8-5.5); Red Cell Distribution Width 15.2 % (9.3-17.3); White Blood Count 7.3 T/CUMM (4-12)
[2017-08-20 04:38] LABS: PT Patient Result 10.8 SECS
[2017-08-20 05:07] LABS: Calcium 8.7 MG/DL (8.5-10.1); Osmolality,Calculated 292.5 MOS/KG (273-304); Potassium 3.8 MMOL/L (3.5-5.1)
[2017-08-20] MEDS: SODIUM CHLORIDE 0.45% 1,000 ML IV SCH ×2 (08:09→18:05)
[2017-08-20] MEDS ORDERED: TORSEMIDE 20 MG TABLET PO SCH ×2 (09:00)
[2017-08-20] MEDS: CHOLECALCIFEROL 1,000 UNIT TABLET PO SCH (09:08)
[2017-08-20] MEDS: VALSARTAN 160 MG TABLET PO SCH (09:08)
[2017-08-20] MEDS: busPIRone 10 MG TABLET PO SCH ×3 (09:08→21:42)
[2017-08-20] MEDS: ESTRADIOL 1 MG TABLET PO SCH (09:08)
[2017-08-20] MEDS: NEBIVOLOL 10 MG TABLET PO SCH (09:09)
[2017-08-20] MEDS: CLOPIDOGREL 75 MG TABLET PO SCH (09:10)
[2017-08-20] MEDS: POTASSIUM CHLORIDE 20 MEQ TABLET PO SCH (09:10)
[2017-08-20] MEDS: ASPIRIN EC 81 MG TABLET PO SCH (09:10)
[2017-08-20] MEDS: PRAVASTATIN 40 MG TABLET PO SCH (09:10)
[2017-08-20] MEDS: hydrALAZINE 25 MG TABLET PO SCH (09:15)
[2017-08-20] MEDS: INSULIN ASPART PROTAMINE/ASPART 70/30 100 UNIT/ML SUBCUT SCH ×2 (09:15→21:42)
[2017-08-20] MEDS: HEPARIN DRIP 25,000 UNITS/500 ML PREMIX IV SCH (09:34)
[2017-08-20] MEDS ORDERED: MAGNESIUM HYDROXIDE SUSP 30 ML UDCUP PO PRN (16:16)
[2017-08-20] MEDS ORDERED: ONDANSETRON 4 MG/2 ML VIAL IV PRN (16:16)
[2017-08-20] MEDS ORDERED: diphenhydrAMINE CAP 25 MG CAPSULE PO PRN (16:16)
[2017-08-20] MEDS ORDERED: WARFARIN 5 MG TABLET PO SCH (18:00)
[2017-08-20] MEDS: TORSEMIDE 20 MG TABLET PO SCH (21:42)
[2017-08-21] MEDS ORDERED: HEPARIN 5,000 UNIT/1 ML VIAL IV PRN (00:17)
[2017-08-21] MEDS: SODIUM CHLORIDE 0.45% 1,000 ML IV SCH (00:51)
[2017-08-21 05:10] LABS: Basophils % 0.6 % (0.0-0.8); Eosinophils # 0.2 10*3/uL (0.0-0.87); Eosinophils % 2.6 % (0.00-10.9); Hematocrit 31.8 VOL% (35.7-47.0); Hemoglobin 10.6 GM/DL (12.0-16.0); Immature Granulocytes % 0.3 %; Immature Granulocytes Absolute 0.02 #; Lymphocytes % 29.6 % (21.3-54.2); Mean Corpuscular HGB Conc 33.3 GM/DL (32-36); Mean Corpuscular Hemoglobin 28 PG (27-34); Mean Corpuscular Volume 84.8 FL (87-102); Mean Platelet Volume 9.6 FL (9.6-12.0); Monocytes % 14.5 % (1.7-12.7); Neutrophils # 3.6 10*3/uL (1.4-7.4); Neutrophils % 52.4 % (38.7-73.9); Platelet Count 300 T/CUMM (130-400); Red Blood Count 3.75 MC/CUMM (3.8-5.5); Red Cell Distribution Width 14.9 % (9.3-17.3); White Blood Count 6.9 T/CUMM (4-12)
[2017-08-21] MEDS: HEPARIN DRIP 25,000 UNITS/500 ML PREMIX IV SCH (05:23)
[2017-08-21 05:48] LABS: Calcium 9.5 MG/DL (8.5-10.1); Osmolality,Calculated 285.4 MOS/KG (273-304); Potassium 3.1 MMOL/L (3.5-5.1)
[2017-08-21] MEDS ORDERED: POTASSIUM CHLORIDE 20 MEQ TABLET PO PRN (05:57)
[2017-08-21] MEDS: TORSEMIDE 20 MG TABLET PO SCH (08:46)
[2017-08-21] MEDS: PRAVASTATIN 40 MG TABLET PO SCH (08:46)
[2017-08-21] MEDS: busPIRone 10 MG TABLET PO SCH ×3 (08:47→20:29)
[2017-08-21] MEDS: VALSARTAN 160 MG TABLET PO SCH (08:47)
[2017-08-21] MEDS: ESTRADIOL 1 MG TABLET PO SCH (08:47)
[2017-08-21] MEDS: NEBIVOLOL 10 MG TABLET PO SCH (08:47)
[2017-08-21] MEDS: ASPIRIN EC 81 MG TABLET PO SCH (08:47)
[2017-08-21] MEDS: hydrALAZINE 25 MG TABLET PO SCH (08:48)
[2017-08-21] MEDS: CLOPIDOGREL 75 MG TABLET PO SCH (08:48)
[2017-08-21] MEDS: POTASSIUM CHLORIDE 20 MEQ TABLET PO SCH (08:48)
[2017-08-21] MEDS: CHOLECALCIFEROL 1,000 UNIT TABLET PO SCH (08:48)
[2017-08-21] MEDS: INSULIN ASPART PROTAMINE/ASPART 70/30 100 UNIT/ML SUBCUT SCH ×2 (08:49→20:29)
[2017-08-21] MEDS ORDERED: WARFARIN 7.5 MG TABLET PO ONE (14:02)
[2017-08-22] MEDS: HEPARIN DRIP 25,000 UNITS/500 ML PREMIX IV SCH ×2 (00:23→10:00)
[2017-08-22 04:51] LABS: Basophils % 0.7 % (0.0-0.8); Eosinophils # 0.2 10*3/uL (0.0-0.87); Eosinophils % 3.1 % (0.00-10.9); Hematocrit 29.9 VOL% (35.7-47.0); Hemoglobin 9.8 GM/DL (12.0-16.0); Immature Granulocytes % 0.3 %; Immature Granulocytes Absolute 0.02 #; Lymphocytes # 2.4 10*3/uL (1.4-4.0); Lymphocytes % 41.4 % (21.3-54.2); Mean Corpuscular HGB Conc 32.8 GM/DL (32-36); Mean Corpuscular Hemoglobin 28 PG (27-34); Mean Corpuscular Volume 86.7 FL (87-102); Mean Platelet Volume 9.1 FL (9.6-12.0); Monocytes # 0.9 10*3/uL (0.11-0.8); Monocytes % 15.9 % (1.7-12.7); Neutrophils # 2.2 10*3/uL (1.4-7.4); Neutrophils % 38.6 % (38.7-73.9); Platelet Count 256 T/CUMM (130-400); Red Blood Count 3.45 MC/CUMM (3.8-5.5); Red Cell Distribution Width 14.9 % (9.3-17.3); White Blood Count 5.7 T/CUMM (4-12)
[2017-08-22 04:54] LABS: INR 1.2; PT Patient Result 12.1 SECS
[2017-08-22 05:14] LABS: Osmolality,Calculated 289.1 MOS/KG (273-304); Potassium 3.6 MMOL/L (3.5-5.1)
[2017-08-22 06:02] LABS: Band Neutrophils 1 % (0-10); Eosinophils 3 % (0-10); Lymphocytes 32 % (20-55); Platelet Estimate Normal; Segmented Neutrophils 50 % (50-85); Total Cells Counted 100
[2017-08-22 06:03] LABS: Polychromasia Slight
[2017-08-22 07:58] VITALS: BP 132/74
[2017-08-22] MEDS: CHOLECALCIFEROL 1,000 UNIT TABLET PO SCH (09:00)
[2017-08-22] MEDS: TORSEMIDE 20 MG TABLET PO SCH ×2 (09:00→09:02)
[2017-08-22] MEDS: NEBIVOLOL 10 MG TABLET PO SCH (09:00)
[2017-08-22] MEDS: ESTRADIOL 1 MG TABLET PO SCH (09:00)
[2017-08-22] MEDS: busPIRone 10 MG TABLET PO SCH (09:00)
[2017-08-22] MEDS: POTASSIUM CHLORIDE 20 MEQ TABLET PO SCH (09:01)
[2017-08-22] MEDS: PRAVASTATIN 40 MG TABLET PO SCH (09:01)
[2017-08-22] MEDS: hydrALAZINE 25 MG TABLET PO SCH (09:01)
[2017-08-22] MEDS: ASPIRIN EC 81 MG TABLET PO SCH (09:01)
[2017-08-22] MEDS: CLOPIDOGREL 75 MG TABLET PO SCH (09:01)
[2017-08-22] MEDS: VALSARTAN 160 MG TABLET PO SCH (09:02)
[2017-08-22] MEDS: INSULIN ASPART PROTAMINE/ASPART 70/30 100 UNIT/ML SUBCUT SCH (09:04)
[2017-08-22] MEDS ORDERED: ENOXAPARIN 100 MG/ML SYRINGE SUBCUT SCH (11:30)
== END 2017-08-22 13:25 | disposition home or self-care (01) | DRG 247 ==
LOC: N.CL 06:02 → N.TELES 07:29
PROVIDERS: ADMIT Internal Medicine Cardiovascular Disease; ATTEND Internal Medicine Cardiovascular Disease
PROC: CLCCHCL (ICD-10-PCS; 2017-08-19 09:15)